=== PATIENT | female | born 1950 | race Caucasian/White ===

== ENCOUNTER 2021-11-17 01:46 | Observation (INO) | payer MEDICARE, BC ==
[2021-11-17 06:13] VITALS: BMI 25.4
[2021-11-17] MEDS ORDERED: Ondansetron ODT 4 MG TAB SL PRN (06:30)
[2021-11-17] MEDS ORDERED: Ondansetron PF 4 MG/2 ML Vial IVP PRN (06:30)
[2021-11-17] MEDS ORDERED: FLU VACC QS2022-23(65YR UP)/PF 240 MCG/0.7 ML SYRINGE IM ONE (08:45)
[2021-11-17] MEDS ORDERED: Iopamidol 370 76% 100 ML VIAL ONE (09:53)
[2021-11-17] MEDS ORDERED: levETIRAcetam 500 MG TAB PO SCH (13:00)
[2021-11-17] MEDS ORDERED: Aspirin 81 mg Enteric Coated Tablet PO SCH (16:16)
[2021-11-17] MEDS: levETIRAcetam 500 MG TAB PO SCH (21:27)
[2021-11-18 06:59] LABS: #Eosinphils 0.2 thou/uL (0.0-0.7); #Lymphocytes 1.9 thou/uL (1.20-3.40); #Monocytes 0.3 thou/uL (0.11-0.59); #Neutrophils 3.1 thou/uL (1.40-6.50); %Basophils 0.8 % (0.0-1.0); %Eosinophils 3.4 % (0.0-10.0); %Monocytes 5.1 % (0.0-10.0); %Neutrophils 56.7 % (42.0-75.0); Hemoglobin 15.5 g/dL (12.0-16.0); Mean Corpuscular Hemoglobin 30.5 pg (27.0-31.0); Mean Corpuscular Volume 95.5 fL (78.0-98.0); Mean Platelet Volume 7.1 fL (7.4-10.4); Platelet Count 221 thou/uL (130-400); RBC Distribution Width 13.4 % (11.5-14.5); Red Blood Cell (RBC) Count 5.07 mill/uL (4.20-5.40); White Blood Cell (WBC) Count 5.5 thou/uL (4.8-10.8)
[2021-11-18 07:12] LABS: ALT (SGPT) 10 U/L (8-55); AST (SGOT) 14 U/L (5-34); Alkaline Phosphatase 72 U/L (40-110); Anion Gap 12 mmol/L (10-20); BUN (Urea Nitrogen) 18 mg/dL (9.8-20.1); Bilirubin, Total 0.5 mg/dL (0.2-1.2); Calc. Creatinine Clearance 42 mL/min (70-130); Calcium 9.8 mg/dL (7.8-10.44); Carbon Dioxide 25 mmol/L (23-31); Cardiac Risk 6.5 (Less than 4.5); Chloride 105 mmol/L (98-107); Cholesterol 317 mg/dl (< 200 Desired); Estimated GFR 47; Globulin 2.9 g/dL (2.4-3.5); Glucose 104 mg/dL (83-110); HDL Cholesterol 49 mg/dL (>60 Neg Risk); LDL Cholesterol, Calculated 215 mg/dL; Potassium 4.3 mmol/L (3.5-5.1); Protein, Total 6.9 g/dL (5.8-8.1); Sodium 138 mmol/L (136-145); Triglycerides 263 mg/dL (Less than 150)
[2021-11-18] MEDS: levETIRAcetam 500 MG TAB PO SCH (08:39)
[2021-11-18] MEDS ORDERED: Aspirin 81 mg Enteric Coated Tablet PO SCH (09:00)
[2021-11-18 11:30] VITALS: BP 130/78; TEMP 98.2
== END 2021-11-18 13:22 | disposition home health service (06) ==
LOC: ERS 01:46 → NEURO 04:44 → INTOOBSV 04:44
PROVIDERS: ADMIT Family Medicine; ATTEND Family Medicine
DX: R41.82 Altered mental status, unspecified (principal); R56.9 Unspecified convulsions; E78.5 Hyperlipidemia, unspecified; J34.1 Cyst and mucocele of nose and nasal sinus; F17.210 Nicotine dependence, cigarettes, uncomplicated; I67.1 Cerebral aneurysm, nonruptured; I65.22 Occlusion and stenosis of left carotid artery; Z85.528 Personal history of other malignant neoplasm of kidney; Z88.0 Allergy status to penicillin; Z90.5 Acquired absence of kidney; Z20.822 Contact with and (suspected) exposure to COVID-19
CPT/HCPCS: 70496; 70551; 80053; 80061; 85025; 93880; 95819; 95957; 97535; 99285; U0003; U0005; 36415; 95816; Q9967